=== PATIENT | male | born 1940 | race Caucasian/White ===

== ENCOUNTER → 2017-06-30 | Outpatient (CLI) | payer MEDICARE, BC ==
[~2017-06-30] MED LIST: ALLO300T2 PO; ATOR40TA16 PO; DONE5TAB7 PO; ESCI10TA PO; ESCI20TA PO; FOLI400T PO; FURO20TA PO; HYDR-3580 PO; ZIAC5TAB PO
[2017-06-30 09:15] LABS: AUTOMATED NEUTROPHIL # 5.3 TH/MM3 (1.8-7.7); BASOPHIL # 0.1 TH/MM3 (0-0.2); EOSINOPHIL # 0.1 TH/MM3 (0-0.4); EOSINOPHIL % 1.2 % (0.0-4.0); HEMATOCRIT 45.9 % (39.0-51.0); HEMOGLOBIN 15.7 GM/DL (13.0-17.0); LYMPH % 13.4 % (9.0-44.0); LYMPHOCYTE # 0.9 TH/MM3 (1.0-4.8); MEAN CELL VOLUME 87.7 FL (80.0-100.0); MEAN CORPUSCULAR HEMOGLOBIN 29.9 PG (27.0-34.0); MEAN CORPUSCULAR HGB CONC 34.1 % (32.0-36.0); MEAN PLATELET VOLUME 8.2 FL (7.0-11.0); MONO % 8.6 % (0.0-8.0); MONOCYTE # 0.6 TH/MM3 (0-0.9); NEUT % 75.8 % (16.0-70.0); PLATELET COUNT 154 TH/MM3 (150-450); RED BLOOD COUNT 5.24 MIL/MM3 (4.50-5.90)
[2017-06-30 09:22] LABS: PROTHROMBIN TIME - PATIENT 10.5 SEC (9.8-11.6)
[2017-06-30 09:41] LABS: AST (GOT) 28 U/L (15-37); BLOOD UREA NITROGEN 17 MG/DL (7-18); CALCIUM 8.9 MG/DL (8.5-10.1); CHLORIDE 104 MEQ/L (98-107); CREATININE 1.01 MG/DL (0.60-1.30); GLOMERULAR FILTRATION RATE 72 ML/MIN (>89); GLUCOSE,FASTING 92 MG/DL (74-99); SODIUM (NA) 141 MEQ/L (136-145)
[2017-06-30 09:42] LABS: ALT (GPT) 50 U/L (12-78)
[2017-06-30 09:44] LABS: ALKALINE PHOSPHATASE 94 U/L (45-117); TOTAL BILIRUBIN ADULT 0.7 MG/DL (0.2-1.0); TOTAL PROTEIN 7.6 GM/DL (6.4-8.2)
[2017-06-30 10:00] LABS: BILIRUBIN, URINE NEG (NEG); BLOOD, URINE NEG (NEG); GLUCOSE,URINE NEG (NEG); KETONE, URINE NEG (NEG); MUCUS URINE FEW /lpf (OCC); NITRITE,URINE NEG (NEG); SQUAMOUS EPITHELIAL CELL URINE 1 /hpf (0-5); URINE COLOR YELLOW (YELLW/STRAW); URINE LEUKOCYTE ESTERASE TRACE (NEG)
--- NOTE | 2017-06-30 10:21 | RADRPT ---
EXAM DATE/TIME: 06/30/2017 09:25 [facility] COMPARISON: CHEST PA & LAT, May 18, 2015, 9:45. INDICATIONS : Evaluate for pneumonia, pneumothorax, or communicable disease. Pre op for back surgery. MEDICAL HISTORY : Arthritis. Hypercholesterolemia. Hypertension. Hyperlipidemia. Chronic bronchitis. Osteoarthritis. SURGICAL HISTORY : Total knee replacement, left. Right shoulder surgery. Bilateral carpel tunnel release. ENCOUNTER: Initial ACUITY: 1 day PAIN SCORE: 0/10 LOCATION: Bilateral chest FINDINGS: PA and lateral views of the chest demonstrate the lungs to be symmetrically aerated without evidence of mass, infiltrate or effusion. The cardiomediastinal contours are unremarkable. Osseous structure s are intact. CONCLUSION: No acute disease. Nickolsa Rogers MD on June 30, 2017 at 10:18 Board Certified Radiologist. This report was verified electronically.
--- NOTE | 2017-07-01 23:11 | EKG ---
Date Performed: 06/30/2017 Time Performed: 08:23:12 PTAGE: 76 years EKG: SINUS BRADYCARDIA BORDERLINE ECG NO PREVIOUS TRACING DOCTOR: Madison Crawford Interpretating Date/Time 07/01/2017 23:09:21
== END ==
LOC: CPRE 07:55
PROVIDERS: ATTEND Neurological Surgery
DX: Z01.812 Encounter for preprocedural laboratory examination (principal); Z01.810 Encounter for preprocedural cardiovascular examination; Z01.811 Encounter for preprocedural respiratory examination; M48.062 Spinal stenosis, lumbar region with neurogenic claudication; Z01.818 Encounter for other preprocedural examination; R00.1 Bradycardia, unspecified
CPT/HCPCS: 36415; 71046; 80053; 81001; 85025; 85610; 85730; 87640; 87641; 93005

== ENCOUNTER 2017-07-15 06:37 | Observation (INO) | payer MEDICARE, BC ==
[~2017-07-15] VITALS: Ht 175.3 cm; Wt 96.4 kg
[~2017-07-15 06:37] MED LIST changes: -ESCI10TA PO
[2017-07-15] MEDS ORDERED: ceFAZolin INJ 1,000 MG VIAL ONE (06:51)
[2017-07-15] MEDS ORDERED: methylPREDNISolone ACETATE 40 MG/ML VIAL ONE (06:53)
[2017-07-15] MEDS ORDERED: THROMBIN (TOPICAL) 5,000 UNIT VIAL ONE (06:53)
[2017-07-15] MEDS ORDERED: GENTAMICIN SULFATE 80 MG/2 ML VIAL ONE (06:54)
[2017-07-15] MEDS ORDERED: GELFOAM SIZE 100 ONE (06:54)
[2017-07-15] MEDS ORDERED: ACETAMINOPHEN 1000 MG/100 ML 100 ML IV ONE (07:06)
[2017-07-15] MEDS ORDERED: ARTIFICIAL TEARS OPTH OINT 3.5 APPLIC/3.5 GM TUBO ONE (07:06)
[2017-07-15] MEDS ORDERED: CANNIBUS OIL SL (07:49)
[2017-07-15] MEDS ORDERED: CA (07:49)
[2017-07-15] MEDS ORDERED: CHLORHEXIDINE GLUCONATE 2 % 1 PACK (2 CLOTHS) TOPICAL PRN (08:00)
[2017-07-15] MEDS ORDERED: POVIDONE IODINE 5% (ANTISEPSIS KIT) 4 APPLICATIONS EACH NARE PRN (08:00)
[2017-07-15] MEDS ORDERED: METOPROLOL TARTRATE 25 MG TAB PO PRN (08:00)
[2017-07-15] MEDS ORDERED: SODIUM CHLORID 0.9% 500 ML IV PRN (08:00)
[2017-07-15] MEDS ORDERED: LACTATED RINGER'S 1000 ML IV PRN (08:00)
[2017-07-15] MEDS ORDERED: SUGAMMADEX SODIUM 200 MG/2 ML VIAL IV PUSH ONE (09:45)
[2017-07-15] MEDS ORDERED: BUPIVACAINE/EPINEPHRINE 0.5% 50 ML VIAL ONE (09:56)
[2017-07-15] MEDS ORDERED: VANCOMYCIN HCL 1000 MG VIAL ONE (10:04)
[2017-07-15] MEDS ORDERED: ROCURONIUM INJ 50 MG/5 ML SYRINGE IV PUSH ONE (12:00)
[2017-07-15] MEDS ORDERED: ONDANSETRON HCL 4 MG/2 ML VIAL IV ONE (12:00)
[2017-07-15] MEDS ORDERED: PHENYLEPH/NS 1000 MCG/10 ML SYR IV ONE (12:00)
[2017-07-15] MEDS ORDERED: PROPOFOL 200 MG/20 ML AMP IV ONE (12:00)
[2017-07-15] MEDS ORDERED: LIDOCAINE HCL 1% PF 5 ML SYRINGE OTHER ONE (12:00)
[2017-07-15] MEDS ORDERED: ePHEDrine/NS 25 MG/5 ML SYRINGE IV ONE (12:00)
[2017-07-15] MEDS ORDERED: GLYCOPYRROLATE 1 MG/5 ML SYRINGE IV PUSH ONE (12:00)
[2017-07-15] MEDS ORDERED: LABETALOL HCL 100 MG/20 ML VIAL IV ONE (12:00)
[2017-07-15] MEDS ORDERED: LACTATED RINGER'S 1000 ML INJ 1,000 ML IV ONE (12:00)
[2017-07-15] MEDS ORDERED: CYCLOBENZAPRINE HCL 10 MG TAB PO PRN (13:30)
[2017-07-15] MEDS ORDERED: ACETAMINOPHEN/HYDROcodone 325 MG/10 MG TAB PO PRN (13:30)
[2017-07-15] MEDS ORDERED: MAGNESIUM HYDROXIDE SUSP 30 ML CUP PO PRN (13:30)
[2017-07-15] MEDS ORDERED: ONDANSETRON HCL 4 MG/2 ML VIAL IV PUSH PRN (13:30)
[2017-07-15] MEDS ORDERED: cloNIDine HCL 0.1 MG TAB PO/NG PRN (13:30)
[2017-07-15] MEDS ORDERED: MORPHINE SULFATE 4 MG/ML INJ IV PUSH PRN (13:30)
[2017-07-15] MEDS ORDERED: MORPHINE SULFATE 2 MG/ML SYRINGE IV PUSH PRN (13:30)
[2017-07-15] MEDS ORDERED: RESP: ALBUTEROL 2.5 MG/3 ML NEB (PRN) INH (13:30)
[2017-07-15] MEDS ORDERED: MENTHOL LOZENGE BUCCAL PRN (13:30)
[2017-07-15] MEDS ORDERED: ACETAMINOPHEN 325 MG TAB PO PRN (13:30)
[2017-07-15] MEDS ORDERED: DO NOT ADM ANY ANTICOAGULANT DRUGS PRN (13:31)
[2017-07-15] MEDS ORDERED: MIDAZOLAM HCL 2 MG/2 ML VIAL ONE (13:41)
[2017-07-15] MEDS ORDERED: *morphine SULFATE 4 MG/ML PERIprocedure ONLY ONE (13:57)
[2017-07-15] MEDS ORDERED: *morphine SULFATE 8 MG/ML PERIprocedure ONLY ONE ×2 (14:11→15:09)
[2017-07-15] MEDS: SODIUM CHLOR 0.9% 1000 ML INJ 1,000 ML IV SCH (14:51)
--- NOTE | 2017-07-15 14:55 | PD.OP ---
Operative Report Date of Surgery: Jul 15, 2017 Preoperative Diagnosis: Lumbar spinal stenosis Postoperative Diagnosis: Lumbar spinal stenosis Procedure: Right L3-4 L4-L5 decompressive laminectomy, mesial facetectomy, foraminotomy with microsurgical resection of the disc Anesthesia: general endotracheal Surgeon: Etienne Jones Acetylene Cutter(s): Opal Cabral Operation and Findings: INDICATIONS FOR THE SURGICAL PROCEDURE Mr Patterson is a 76 year-old male who presented with intractable mechanical back pain and clinical evidence of right L4 and L5 lower extremity radiculopathy. He was found to have significant lumbar spinal stenosis with significant mass effect on the neural structures which correlated with the clinical symptoms. The patient has failed maximum nonsurgical management including multiple modalities of conservative treatment as well as pain management interventions by an interventional pain specialist. A surgical decompression was indicated as a last resort. The [id number] details of the procedure, indications, alternatives, risks and potential complications were fully discussed with the patient. The patient fully understood. All the questions were answered. No guarantees were given. The patient voiced requesting the procedure and provided informed consents. The patient was offered the alternative of delaying the procedure and continuing with nonsurgical management. DETAILS OF THE SURGICAL PROCEDURE After the induction of general anesthesia, endotracheal intubation was performed. A Kay catheter, bilateral KENNETH hose and sequential compression devices were placed and kept throughout the procedure. The patient was positioned prone on a Vadim table over a Jason frame. All pressure points were carefully padded with eggcrate mattress. The eyes were tapped shut after ointment was applied by the anesthesiologist to prevent corneal abrasion. A Marisela hugger was placed over the exposed lower body to maintain control of the core body temperature. The lower lumbar region was prepped and draped in the usual sterile fashion. A spinal needle was placed for localization and an x- ray performed with a C-arm. A skin incision was made in the midline over the spinous processes L3, L4, and L5 with a #10 blade. Small subcutaneous bleeders were controlled with a bipolar and the dissection was carried out through the lumbar fascia exposing the spinous processes. A subperiostial dissection was performed with a Robison elevator and a Bovie over the L3-4, L4-5 spinous process lamina and facets. A microdiscectomy self-retaining retractor was placed on the incision and an x- ray was obtained with an instrument placed underneath the lamina of L5. At this point in the procedure the operating microscope was draped in the usual sterile fashion and brought to the field. The rest of the surgical procedure was performed using microsurgical dissection technique with exception of the closure. Once the level was confirmed, a decompressive laminectomy was performed at L3-4 , L4-5 using the TPS drill with an 4mm drill bit. A medial facetectomy was performed and the superior free border of the ligamentum flavum was dissected with a ligament dissector and removed with a thin footplate 2 mm Kerrison. The medial facetectomy was done and the L5 nerve root was identified and followed towards its exit in the foramen. Epidural veins located laterally to the dural sac were coagulated with a bipolar and incised with microscissors. Gentle medial retraction of the dural sac allowed inspection of the disc space. The patient had severe facet arthropathy with hypertrhopy of the joint facets and ligamentum flavum resulting in mass effect over the dural sac and nerve roots. In addition, there was a broad-based disc protusion, contributing to the stenosis. The annulus fibrosus of the disc was coagulated with the bipolar and incised with an 11 blade. The extruded disc was carefully dissected from the surrounding tissue and removed with pituitary forceps. Then, a microdiscectomy was carried out in the standard fashion using straight and up-biting pituitary forceps. A good decompression of the dural sac and nerve root was achieved. The exit of the nerve root was inspected for residual disc fragments and hemostasis was secured with the bipolar. The incision was irrigated with a large amount of saline solution. A Valsalva maneuver failed to show any cerebrospinal fluid leak or bleeding. The decompression was assessed again and found to be satisfactory. The incision was then closed in layers. The fascia was closed with 0 Vicryl sutures in an interrupted fashion. The superficial fascia was closed with 0 Vicryl sutures. The fascia was infiltrated with 0.5% Marcaine with epinephrine 1:100,000 dilution. The subcutaneous tissue was irrigated then closed with 0 Vicryl and 3 -0 Vicryl. The skin was closed with 4-0 running subcuticular Vicryl. A sterile dressing was applied. At the end of the procedure, the sponge, needle and instrument counts were all correct. Estimated blood loss was less than 80 cc. No blood transfusion was given. No intraoperative complications occurred. The patient received prophylactic antibiotics. The patient was then extubated and transferred to the recovery room in stable condition. Etienne Jones MD Jul 15, 2017 14:55
[2017-07-15] MEDS ORDERED: HYDR-3583 PO (15:09)
--- NOTE | 2017-07-15 15:11 | RADRPT ---
EXAM DATE/TIME: 07/15/2017 11:23 [facility] COMPARISON: No previous studies available for comparison. INDICATIONS : Level Localization L3,L4 and L4,L5 for laminectomy MEDICAL HISTORY : Arthritis. Hypercholesterolemia. Hypertension. Hyperlipidemia. Chronic bronchitis. Osteoarthritis. SURGICAL HISTORY : Total knee replacement, left. Right shoulder surgery. Bilateral carpel tunnel release. ENCOUNTER: Initial ACUITY: 1 day PAIN SCORE: Non-responsive. LOCATION: Lumbar spine. FINDINGS: Several intraoperative films are submitted for review. Surgical hardware is noted posterior to the L4 vertebral body and marker instrument is noted at the L3-4 and L4-5 levels. CONCLUSION: Surgical hardware is noted posterior to the L4 vertebral body and marker instrument is noted at the L 3-4 and L4-5 levels. Stephen Ruiz MD on July 15, 2017 at 15:07 Board Certified Radiologist. This report was verified electronically.
[2017-07-15 16:58] VITALS: BP 150/64; PULSE 81; RESP 20; TEMP 98.4; O2SAT 92
[2017-07-15] MEDS: ACETAMINOPHEN/HYDROcodone 325 MG/10 MG TAB PO PRN ×2 (18:07→22:42)
[2017-07-15 19:46] VITALS: O2SAT 96
[2017-07-15 20:00] VITALS: BP 127/71; PULSE 91; RESP 20; TEMP 97.7; O2SAT 94
[2017-07-15] MEDS ORDERED: ATORVASTATIN 40 MG TAB PO SCH (21:00)
[2017-07-15] MEDS ORDERED: DONEPEZIL HCL 5 MG TAB PO SCH (21:00)
[2017-07-15 21:09] VITALS: BP 127/71; PULSE 91; RESP 20; TEMP 97.9; O2SAT 93
[2017-07-15] MEDS: DOCUSATE SODIUM 100 MG CAP PO SCH (22:42)
[2017-07-15] MEDS: VANCOMYCIN INJ 1,000 MG in SODIUM CHLOR 0.9% 250 ML INJ 250 ML IV SCH (22:43)
[2017-07-16] VITALS: BP 109/59; PULSE 82; RESP 18; TEMP 97.8; O2SAT 95
[2017-07-16 00:09] VITALS: BP 109/56; PULSE 82; RESP 18; TEMP 97.8; O2SAT 95
[2017-07-16] MEDS: SODIUM CHLOR 0.9% 1000 ML INJ 1,000 ML IV SCH ×2 (04:10)
[2017-07-16 04:47] VITALS: BP 107/59; PULSE 81; RESP 18; TEMP 98; O2SAT 94
[2017-07-16 08:00] VITALS: BP 122/55; PULSE 78; RESP 16; TEMP 98.1; O2SAT 94
[2017-07-16] MEDS: DOCUSATE SODIUM 100 MG CAP PO SCH (08:57)
[2017-07-16] MEDS ORDERED: FUROSEMIDE 20 MG TAB PO SCH (09:00)
[2017-07-16] MEDS ORDERED: BISOPROLOL HYDROCHLOROTHIAZIDE PO SCH (09:00)
[2017-07-16] MEDS ORDERED: ALLOPURINOL 300 MG TAB PO SCH (09:00)
[2017-07-16] MEDS ORDERED: FOLIC ACID 1 MG TAB PO SCH (09:00)
[2017-07-16] MEDS ORDERED: ESCITALOPRAM OXALATE 20 MG TAB PO SCH (09:00)
[2017-07-16] MEDS ORDERED: PANTOPRAZOLE SOD 40 MG DELAYED RELEASE TAB PO SCH (09:00)
[2017-07-16 10:05] VITALS: O2SAT 97
--- NOTE | 2017-07-16 10:53 | HHI.DCPOC ---
Discharge Care Plan Diagnosis: (1) S/P lumbar laminectomy Goals to Promote Your Health * To prevent worsening of your condition and complications * To maintain your health at the optimal level Directions to Meet Your Goals Take your medications as prescribed Follow your dietary instruction Follow activity as directed Keep your appointments as scheduled Take your immunizations and boosters as scheduled If your symptoms worsen call your PCP, if no PCP go to Urgent Care Center or Emergency Room Smoking is Dangerous to Your Health. Avoid second hand smoke Call the 24-hour hour crisis hotline for domestic abuse at Mayra Elizondo Jul 16, 2017 10:53
--- NOTE | 2017-07-16 10:54 | HHI.DS ---
Discharge Summary Admission Date Jul 15, 2017 at 13:19 Discharge Date: Jul 16, 2017 Admitting Diagnosis s/p lumbar laminectomy (1) S/P lumbar laminectomy ICD Code: Z98.890 - Other specified postprocedural states Brief History Mr Patterson is a 76 year-old male who presented with intractable mechanical back pain and clinical evidence of right L4 and L5 lower extremity radiculopathy. He was found to have significant lumbar spinal stenosis with significant mass effect on the neural structures which correlated with the clinical symptoms. The patient has failed maximum nonsurgical management including multiple modalities of conservative treatment as well as pain management interventions by an interventional pain specialist. A surgical decompression was indicated as a last resort. Imaging Last Impressions Lumbar Spine X-Ray 07/15/17 0000 Signed Impressions: Service Date/Time: Thursday, July 15, 2017 11:23 - CONCLUSION: Surgical hardware is noted posterior to the L4 vertebral body and marker instrument is noted at the L3-4 and L4-5 levels. Stephen Ruiz MD Hospital Course Mr. Patterson underwent a right L3-4 L4-L5 decompressive laminectomy, mesial facetectomy, foraminotomy with microsurgical resection of the disc on Jul 15, 2017 for lumbar spinal stenosis. He was discharged home in stable conditions. Pt Condition on Discharge: Stable Discharge Disposition: Disch w/ Home Health Serv Discharge Instructions DIET: Follow Instructions for: Heart Healthy Diet ACTIVITIES You can perform: Weight Bearing As Leroy ADDITIONAL Activity Instructio: Avoid strenuous activities, heavy lifting over 5 lbs, overhead activities, repetitive bending, twisting, pushing, pulling or any activities which might result in stress over the spine. Avoid situation that will put at risk for falls. Use assistive device as needed for walking. Wear provided back brace when out of bed. New Medications: Hydrocodone/Acetaminophen (Hydrocodone-Acetamin 10-325 mg) 10 Mg-325 Mg Tablet 1 TAB PO Q8HR PRN for PAIN SCALE 1 TO 10, #62 TAB 0 Refills Continued Medications: Allopurinol (Allopurinol) 300 Mg Tab 300 MG PO DAILY for Gout, #30 TAB 0 Refills Atorvastatin (Atorvastatin) 40 Mg Tab 40 MG PO HS for Cholesterol Management, #30 TAB 0 Refills Bisoprolol-Hydrochlorothiazide (Ziac) 5-6.25 Mg Tab 1 TAB PO DAILY for Blood Pressure Management, #30 TAB 0 Refills Donepezil (Donepezil) 5 Mg Tab 5 MG PO HS for Dementia, #30 TAB 0 Refills Folic Acid (Folic Acid) 0.4 Mg Tab 1 MG PO DAILY for Nutritional Supplement, TAB 0 Refills Furosemide (Furosemide) 20 Mg Tab 20 MG PO DAILY, #30 TAB 0 Refills [Cannibus Oil] () 10 DROP SL DIRECTED for Pain Discontinued Medications: Escitalopram (Escitalopram) 20 Mg Tab 20 MG PO DAILY, #30 TAB 0 Refills Hydrocodone-Acetaminophen (Hydrocodone-Acetaminophen) 7.5 Mg-325 Mg Tab 1-2 TAB PO Q6H PRN for PAIN, TAB 0 Refills Mayra Elizondo Jul 16, 2017 10:54
--- NOTE | 2017-07-16 10:55 | HHI.FF ---
Face to Face Verification Diagnosis: (1) S/P lumbar laminectomy Physical Therapy Order: Improve ambulation, Strength and gait training (lower extremity as tolerated, no lumbar exercises) Home Health Nursing Order: Medical education Signs/symptoms of disease process Medication education-adverse effect Wound care and dressing changes (see dc wound care order) Nursing assessment with vital signs I have seen patient Hollis PattersonJr on 07/16/17. My clinical findings support the need for the requested home health care services because: Ltd mobility - disease progression Deconditioned w/ increased weakness High risk of falls I certify that my clinical findings support that this patient is homebound because: Post-op weakness Unsteady gait/balance Mayra Elizondo Jul 16, 2017 10:55
[2017-07-16] MEDS: VANCOMYCIN INJ 1,000 MG in SODIUM CHLOR 0.9% 250 ML INJ 250 ML IV SCH (11:00)
== END 2017-07-16 11:59 | disposition home health service (06) ==
LOC: HSDC 06:37 → HSDI 13:19 → N05B 16:00
PROVIDERS: ADMIT Neurological Surgery; ATTEND Neurological Surgery
DX: M48.061 Spinal stenosis, lumbar region without neurogenic claudication (principal); M54.16 Radiculopathy, lumbar region; I10 Essential (primary) hypertension; E78.00 Pure hypercholesterolemia, unspecified; M19.90 Unspecified osteoarthritis, unspecified site
CPT/HCPCS: 00630; 63047; 63048; 72020; 76000; 94150; 96360; 96361; 97163; G0378; G8987; G8988; J0131; J1030; J1580; J2250; J2270; J2370; J2405; J3010; J3370; J7030; J7050; J7120; L0627; J0690

== ENCOUNTER 2017-08-05 10:13 | Inpatient (IN) | payer MEDICARE, BC ==
[~2017-08-05] VITALS: Ht 175.3 cm; Wt 90.0 kg
[2017-08-05] VITALS (8 sets, daily range): BP systolic 130–180; BP diastolic 67–92; PULSE 57–69; RESP 16–20; TEMP 97.6–97.9; O2SAT 94–98
[~2017-08-05 10:13] MED LIST changes: +CANNIBUS OIL SL; -ESCI20TA PO; -HYDR-3580 PO; +HYDR-3583 PO
--- NOTE | 2017-08-05 10:26 | PD ---
HPI Chief Complaint: Back/ Neck Pain or Injury Time Seen by Provider: 10:24 Travel History International Travel<30 days: No Contact w/Intl Traveler<30days: No Traveled to known affect area: No History of Present Illness HPI 76 y/o male presents with sharp low back pain and weakness and numbness to his right leg. He states that he was doing okay after his surgery but yesterday after he sneezed and had a fall the weakness and numbness got worse in his leg and now he cannot feel his leg at all. He states the hydrocodone helps with the pain some. He states his surgeon Dr. Jones advised him to come here. He states he had surgery with him on July 15 on his back. He denies any other concurrent complaints. His states he has had multiple falls at home. She helps supplement history as patient does not have his hearing aid in [facility] Past Medical History Arthritis: Yes Asthma: No Autoimmune Disease: Yes (MS) Anxiety: Yes (does not take any medications for his anxiety) Depression: No Heart Rhythm Problems: No Cancer: No Cardiovascular Problems: No High Cholesterol: Yes Chemotherapy: No Chest Pain: No Congestive Heart Failure: No COPD: No Cerebrovascular Accident: No Diabetes: No Endocrine: Yes (benign pituitary adenoma) GERD: No Genitourinary: No Hepatitis: No Hiatal Hernia: No Immune Disorder: Yes (MS) Kidney Stones: Yes (kidney stones removed ) Musculoskeletal: Yes (osteoarthritis) Neurologic: Yes (MS) Psychiatric: Yes (DEMENTIA) Reproductive: No Respiratory: Yes Migraines: No Radiation Therapy: No Renal Failure: No Seizures: No Sickle Cell Disease: No Sleep Apnea: No Thyroid Disease: No Ulcer: No Past Surgical History Abdominal Surgery: No AICD: No Arteriovenous Shunt: No Cardiac Surgery: No Ear Surgery: No Endocrine Surgery: No Eye Surgery: No Genitourinary Surgery: Yes (kidney stones removed) Gynecologic Surgery: No Insulin Pump: No Joint Replacement: Yes (LEFT KNEE) Oral Surgery: No Pacemaker: No Thoracic Surgery: No Social History Tobacco Use: No Substance Use: Yes ([facility]) Allergies-Medications (Allergen,Severity, Reaction): Coded Allergies: diphenhydramine (Unverified Allergy, Severe, anaphylaxis, 08/05/17) penicillin G (Unverified Allergy, Severe, anaphylaxis, 08/05/17) moxifloxacin (Unverified Allergy, Mild, unknown, 08/05/17) Uncoded Allergies: All Cillins (Allergy, Severe, Anaphylaxis, 05/18/15) pt states he is allergic to "all cillins" Reported Meds & Prescriptions Reported Meds & Active Scripts Active Hydrocodone-Acetamin 10-325 mg (Hydrocodone/Acetaminophen) 10 Mg-325 Mg Tablet 1 Tab PO Q8HR PRN Reported Escitalopram (Escitalopram Oxalate) 10 Mg Tab 10 Mg PO DAILY [Cannibus Oil] 10 Drop SL DIRECTED Furosemide 20 Mg Tab 20 Mg PO DAILY Donepezil 5 Mg Tab 5 Mg PO HS Folic Acid 0.4 Mg Tab 1 Mg PO DAILY Ziac (Bisoprolol-Hydrochlorothiazide) 5-6.25 Mg Tab 1 Tab PO DAILY Atorvastatin (Atorvastatin Calcium) 40 Mg Tab 40 Mg PO HS Allopurinol 300 Mg Tab 300 Mg PO DAILY Review of Systems Except as stated in HPI: all other systems reviewed are Neg Physical Exam Narrative GENERAL: 76-year-old male who appears uncomfortable SKIN: Focused skin assessment warm/dry. HEAD: Atraumatic. Normocephalic. EYES: Pupils equal and round. No scleral icterus. No injection or drainage. ENT: No nasal bleeding or discharge. Mucous membranes pink and moist. NECK: Trachea midline. CARDIOVASCULAR: Regular rate and rhythm. No murmur appreciated. RESPIRATORY: No accessory muscle use. No increased effort GASTROINTESTINAL: Abdomen soft, non-tender, nondistended. MUSCULOSKELETAL: No obvious deformities. No clubbing. No cyanosis. No edema. NEUROLOGICAL: Awake and alert. Patient can only lift right leg off the bed if he uses his left leg to assist. He can bend his leg at the knee but he cannot get it off the bed on his own without significant pain and he states weakness. He also notes numbness to his entire right leg but can feel me touch. Normal speech. PSYCHIATRIC: Appropriate mood and affect; insight and judgment normal. Data Data Last Documented VS Vital Signs Date Time Temp Pulse Resp B/P (MAP) Pulse Ox O2 Delivery O2 Flow Rate FiO2 08/05/17 11:00 57 19 166/77 (106) 97 Room Air 08/05/17 10:19 97.9 Orders Orders Magnesium (Mg) (08/05/17 10:33) Complete Blood Count With Diff (08/05/17 10:33) Basic Metabolic Panel (Bmp) (08/05/17 10:33) Iv Access Insert/Monitor (08/05/17 10:33) Ecg Monitoring (08/05/17 10:33) Oximetry (08/05/17 10:33) Morphine Inj (Morphine Inj) (08/05/17 10:45) Mri L Spine W&W/O Contrast (08/05/17 ) Gadodiamide Pf Inj (Omniscan Pf Inj) (08/05/17 13:12) Admit Order (Ed Use Only) (08/05/17 14:23) Labs Laboratory Tests Test 08/05/17 10:40 White Blood Count 6.6 TH/MM3 Red Blood Count 5.19 MIL/MM3 Hemoglobin 15.8 GM/DL Hematocrit 45.8 % Mean Corpuscular Volume 88.1 FL Mean Corpuscular Hemoglobin 30.4 PG Mean Corpuscular Hemoglobin Concent 34.4 % Red Cell Distribution Width 14.4 % Platelet Count 143 TH/MM3 Mean Platelet Volume 8.3 FL Neutrophils (%) (Auto) 78.9 % Lymphocytes (%) (Auto) 9.4 % Monocytes (%) (Auto) 10.9 % Eosinophils (%) (Auto) 0.1 % Basophils (%) (Auto) 0.7 % Neutrophils # (Auto) 5.2 TH/MM3 Lymphocytes # (Auto) 0.6 TH/MM3 Monocytes # (Auto) 0.7 TH/MM3 Eosinophils # (Auto) 0.0 TH/MM3 Basophils # (Auto) 0.0 TH/MM3 CBC Comment DIFF FINAL Differential Comment Blood Urea Nitrogen 15 MG/DL Creatinine 1.17 MG/DL Random Glucose 106 MG/DL Calcium Level 9.6 MG/DL Magnesium Level 2.1 MG/DL Sodium Level 136 MEQ/L Potassium Level 3.3 MEQ/L Chloride Level 98 MEQ/L Carbon Dioxide Level 25.2 MEQ/L Anion Gap 13 MEQ/L Estimat Glomerular Filtration Rate 61 ML/MIN MDM Medical Decision Making Medical Screen Exam Complete: Yes Emergency Medical Condition: Yes Medical Record Reviewed: Yes (Right L3-4 L4-L5 decompressive laminectomy, mesial facetectomy, foraminotomy with microsurgical resection of the disc on july [address] daniel) Interpretation(s) CBC & BMP Diagram 08/05/17 10:40 Calcium Level 9.6, Magnesium Level 2.1 Last 24 hours Impressions Lumbar Spine MRI 08/05/17 0000 Signed Impressions: Service Date/Time: Saturday, August 05, 2017 12:48 - CONCLUSION: 1. There has been prior right laminectomy at L3-L4 and L4-L5. At L3-L4, there is very mild canal narrowing secondary to material in the posterior lateral to lateral epidural space, likely representing scar tissue given the appearance and enhancement pattern. 2. At L4-L5 there is no canal stenosis but there is mild to moderate narrowing of the neural foramina bilaterally. Bhupinder Murdock MD Differential Diagnosis Fracture, disc injury, stenosis Narrative Course Will check blood work, mri spine and discuss with his surgeon Surgeon updated about CT and without surgical findings on MRI. Will admit to the hospital for further care given significant increase in weakness and numbness to right leg leading to multiple falls. patient updated Physician Communication Physician Communication [facility] states to proceed with mri spine and call back [facility] states to admit to medicine and may need neurology consult dr clements agrees to admit Diagnosis Primary Impression: Right leg weakness Additional Impressions: Right leg numbness Back pain Qualified Codes: M54.9 - Dorsalgia, unspecified Fall Qualified Codes: W19.XXXA - Unspecified fall, initial encounter Admitting Information Admitting Physician Requests: Wilma Titus MD August 05, 2017 10:26
[2017-08-05] MEDS ORDERED: ESCI10TA PO (10:37)
[2017-08-05] MEDS ORDERED: MORPHINE SULFATE 4 MG/ML INJ IV PUSH ONE (10:45)
[2017-08-05 11:24] LABS: AUTOMATED NEUTROPHIL # 5.2 TH/MM3 (1.8-7.7); BASOPHIL % 0.7 % (0.0-2.0); EOSINOPHIL % 0.1 % (0.0-4.0); HEMATOCRIT 45.8 % (39.0-51.0); HEMOGLOBIN 15.8 GM/DL (13.0-17.0); LYMPH % 9.4 % (9.0-44.0); LYMPHOCYTE # 0.6 TH/MM3 (1.0-4.8); MEAN CELL VOLUME 88.1 FL (80.0-100.0); MEAN CORPUSCULAR HEMOGLOBIN 30.4 PG (27.0-34.0); MEAN CORPUSCULAR HGB CONC 34.4 % (32.0-36.0); MEAN PLATELET VOLUME 8.3 FL (7.0-11.0); MONO % 10.9 % (0.0-8.0); MONOCYTE # 0.7 TH/MM3 (0-0.9); NEUT % 78.9 % (16.0-70.0); PLATELET COUNT 143 TH/MM3 (150-450); RED BLOOD COUNT 5.19 MIL/MM3 (4.50-5.90); RED CELL DISTRIBUTION WIDTH 14.4 % (11.6-17.2); WHITE BLOOD COUNT 6.6 TH/MM3 (4.0-11.0)
[2017-08-05 11:41] LABS: BICARBONATE 25.2 MEQ/L (21.0-32.0); CALCIUM 9.6 MG/DL (8.5-10.1); CREATININE 1.17 MG/DL (0.60-1.30); MAGNESIUM 2.1 MG/DL (1.5-2.5)
[2017-08-05] MEDS ORDERED: GADODIAMIDE PF 287 MG/ML 20 ML VIAL (for RAD MRI) IVCONTRAST ONE ×2 (13:12→14:25)
--- NOTE | 2017-08-05 13:55 | RADRPT ---
EXAM DATE/TIME: 08/05/2017 12:48 [facility] COMPARISON: No previous studies available for comparison. INDICATIONS : Right leg weakness post fall. Lumbar laminectomy 3 weeks ago. CONTRAST: 18 cc Omniscan (gadodiamide) IV MEDICAL HISTORY : Hypertension. SURGICAL HISTORY : Shoulder, Lt knee, lumbar laminectomy ENCOUNTER: Subsequent ACUITY: 2 day PAIN SCORE: 3/10 LOCATION: lower back TECHNIQUE: Multiplanar multisequence MRI of the lumbar spine was performed with and without contrast. FINDINGS: The most caudal appearing lumbar vertebra is numbered as L5. VERTEBRAE: Bone marrow signal is within normal limits. There has been prior laminectomy on the right at L3-L4 an d L4-L5. Vertebral body height is maintained. A hemangioma is present within the L3 vertebral body po steriorly. CONUS: Normal level and configuration. POST CONTRAST: There is a mild degree of enhancement of scar tissue in the right posterior epidural space at L3-L4. T12-L1: No significant disc herniation, canal stenosis, or neural foraminal stenosis is present. L1-L2: No significant disc herniation, canal stenosis, or neural foraminal stenosis. There is mild facet hyp ertrophy. L2-L3: There is a mild diffuse disc bulge with mild facet hypertrophy. No spinal canal stenosis or neural fo raminal stenosis is present. Endplate osteophytes are present anteriorly. L3-L4: Endplate osteophytes are present anteriorly. There has been a right laminectomy. Heterogeneous T2 sig nal is present in the right posterior lateral epidural space in this tissue demonstrates a mild degre e of enhancement. This mildly narrows the canal. There is mild right neural foraminal stenosis. Facet hypertrophy is present. L4-L5: There has been prior laminectomy on the right. Endplate osteophytes are present anteriorly. There is moderate facet hypertrophy with fluid in the right facet joint. There is a mild diffuse disc bulge. N o spinal canal stenosis is present. There is mild to moderate narrowing of the neural foramina bilate rally. L5-S1: There is a mild diffuse disc bulge with a possible annular tear centrally. Moderate facet hypertrophy is present bilaterally with fluid in the right facet joint. No spinal canal stenosis or neural sadi inal narrowing is present. There is edema within the right posterior paraspinal musculature at the level of prior surgery. CONCLUSION: 1. There has been prior right laminectomy at L3-L4 and L4-L5. At L3-L4, there is very mild canal narr owing secondary to material in the posterior lateral to lateral epidural space, likely representing s car tissue given the appearance and enhancement pattern. 2. At L4-L5 there is no canal stenosis but there is mild to moderate narrowing of the neural foramina bilaterally. Bhupinder Murdock MD on August 05, 2017 at 13:46 Board Certified Radiologist. This report was verified electronically.
[2017-08-05] MEDS ORDERED: ONDANSETRON HCL 4 MG/2 ML VIAL IVP PRN (16:30)
[2017-08-05] MEDS ORDERED: MAGNESIUM HYDROXIDE SUSP 30 ML CUP PO PRN (16:30)
[2017-08-05] MEDS ORDERED: ACETAMINOPHEN/HYDROcodone 325 MG/5 MG TAB PO PRN (16:30)
[2017-08-05] MEDS ORDERED: NALOXONE HCL 0.4 MG/ML AMP IV PUSH PRN (16:30)
[2017-08-05] MEDS ORDERED: MORPHINE SULFATE 2 MG/ML SYRINGE IV PUSH PRN (16:30)
--- NOTE | 2017-08-05 17:04 | HHI.HP ---
[facility] Service [facility] Primary Care Physician Jalen Betancourt M.D. Admission Diagnosis Right leg numbness and weakness, low back pain, fall Diagnoses: Chief Complaint: right leg weakness and right groin pain Travel History International Travel<30 Days: No Contact w/Intl Traveler <30 Da: No Traveled to Known Affected Are: No History of Present Illness Written by ELPIDIO Ellison acting as scribe for [Mychal] on 08/05/17 at 16: 53. 76 y/o with a history of MS (not on medication in 3 years), HLD, dementia, HTN, depression and gout complaints of weakness of right leg and right groin pain. Patient states he had L4-L5 surgery 3 weeks ago and things were getting better and his right leg weakness was improving and he was able to move his leg. He states he fell on and the weakness returned. He noticed on Thursday when he sneezed he lost control of his bladder and had extreme pain in his lower spine. He complains of right upper quadrant sore pain, 6/10, worse with palpation and right inguinal area pain worse with cough. He is awaiting pain medications. He states he uses CBD oil at home for pain. He use to follow with Dr. Posadas for his MS but has not seen him in 3 years. Denies any chest pain or sob. Review of Systems Except as stated in HPI: all other systems reviewed are Neg Past Family Social History Past Medical History MS HTN HLD Dementia Depression Gout Past Surgical History L4-L5 Left knee Right shoulder surgery Carpal tunnel Reported Medications Reported Meds & Active Scripts Active Hydrocodone-Acetamin 10-325 mg (Hydrocodone/Acetaminophen) 10 Mg-325 Mg Tablet 1 Tab PO Q8HR PRN Reported Escitalopram (Escitalopram Oxalate) 10 Mg Tab 10 Mg PO DAILY [Cannibus Oil] 10 Drop SL DIRECTED Furosemide 20 Mg Tab 20 Mg PO DAILY Donepezil 5 Mg Tab 5 Mg PO HS Folic Acid 0.4 Mg Tab 1 Mg PO DAILY Ziac (Bisoprolol-Hydrochlorothiazide) 5-6.25 Mg Tab 1 Tab PO DAILY Atorvastatin (Atorvastatin Calcium) 40 Mg Tab 40 Mg PO HS Allopurinol 300 Mg Tab 300 Mg PO DAILY Allergies: Coded Allergies: diphenhydramine (Unverified Allergy, Severe, anaphylaxis, 08/05/17) penicillin G (Unverified Allergy, Severe, anaphylaxis, 08/05/17) moxifloxacin (Unverified Allergy, Mild, unknown, 08/05/17) Uncoded Allergies: All Cillins (Allergy, Severe, Anaphylaxis, 05/18/15) pt states he is allergic to "all cillins" Active Ordered Medications Current Medications Medications (Trade) Dose Ordered Sig/Sanam Route Start Time Stop Time Status Last Admin (Zyloprim) 300 mg DAILY PO 08/06/17 09:00 UNV (Lipitor) 40 mg HS PO 08/05/17 21:00 UNV (Aricept) 5 mg HS PO 08/05/17 21:00 UNV (Lexapro) 10 mg DAILY PO 08/06/17 09:00 UNV (Folate) 1 mg DAILY PO 08/06/17 09:00 UNV (Lasix) 20 mg DAILY PO 08/06/17 09:00 UNV Non-Formulary Medication 1 tab DAILY PO 08/06/17 09:00 UNV (KCl) 40 meq ONCE ONCE PO 08/05/17 16:30 08/05/17 16:31 UNV (Zofran Inj) 4 mg Q6H PRN IVP 08/05/17 16:30 UNV (Lovenox Inj) 40 mg Q24H SQ 08/05/17 16:30 UNV (Irving 5-325 Mg) 1 tab Q4H PRN PO 08/05/17 16:30 UNV (Irving 7.5-325 Mg) 1 tab Q4H PRN PO 08/05/17 16:30 UNV (Morphine Inj) 4 mg Q3H PRN IV PUSH 08/05/17 16:30 UNV (Narcan Inj) 0.4 mg UNSCH PRN IV PUSH 08/05/17 16:30 UNV (Maria Eugenia-Colace) 1 tab BID PO 08/05/17 21:00 UNV (Milk Of Magnesia Liq) 30 ml Q12H PRN PO 08/05/17 16:30 UNV Family History Mom and Dad: Heart disease Social History Patient denies any tobacco, alcohol or illicit drug use. Patient lives at home with Physical Exam Vital Signs Vital Signs Date Time Temp Pulse Resp B/P (MAP) Pulse Ox O2 Delivery O2 Flow Rate FiO2 08/05/17 16:28 97 21 08/05/17 14:30 57 19 180/80 (113) 97 Room Air 08/05/17 11:00 57 19 166/77 (106) 97 Room Air 08/05/17 10:38 97 Room Air 08/05/17 10:38 75 18 08/05/17 10:19 97.9 64 20 164/67 (99) 98 Physical Exam GENERAL: This is a well-nourished, well-developed patient, in no apparent distress. SKIN: No rashes, ecchymoses or lesions. Cool and dry. EYES: Pupils equal round and reactive. Extraocular motions intact. No scleral icterus. No injection or drainage. NECK: Trachea midline. No JVD or lymphadenopathy. CARDIOVASCULAR: Regular rate and rhythm without murmurs, gallops, or rubs. RESPIRATORY: Clear to auscultation. Breath sounds equal bilaterally. No wheezes , rales, or rhonchi. GASTROINTESTINAL: Abdomen soft, RUQ tenderness, nondistended. Right inguinal pain. MUSCULOSKELETAL: Right flaccid lower extremity. No joint tenderness, effusion, or edema noted. No calf tenderness. NEUROLOGICAL: Awake and alert. Cranial nerves II through XII intact. Motor and sensory grossly within normal limits. Normal speech. Laboratory Laboratory Tests Test 08/05/17 10:40 White Blood Count 6.6 Red Blood Count 5.19 Hemoglobin 15.8 Hematocrit 45.8 Mean Corpuscular Volume 88.1 Mean Corpuscular Hemoglobin 30.4 Mean Corpuscular Hemoglobin Concent 34.4 Red Cell Distribution Width 14.4 Platelet Count 143 Mean Platelet Volume 8.3 Neutrophils (%) (Auto) 78.9 Lymphocytes (%) (Auto) 9.4 Monocytes (%) (Auto) 10.9 Eosinophils (%) (Auto) 0.1 Basophils (%) (Auto) 0.7 Neutrophils # (Auto) 5.2 Lymphocytes # (Auto) 0.6 Monocytes # (Auto) 0.7 Eosinophils # (Auto) 0.0 Basophils # (Auto) 0.0 CBC Comment DIFF FINAL Differential Comment Blood Urea Nitrogen 15 Creatinine 1.17 Random Glucose 106 Calcium Level 9.6 Magnesium Level 2.1 Sodium Level 136 Potassium Level 3.3 Chloride Level 98 Carbon Dioxide Level 25.2 Anion Gap 13 Estimat Glomerular Filtration Rate 61 Result Diagram: 08/05/17 1040 08/05/17 1040 Imaging Last Impressions Lumbar Spine MRI 08/05/17 0000 Signed Impressions: Service Date/Time: Saturday, August 05, 2017 12:48 - CONCLUSION: 1. There has been prior right laminectomy at L3-L4 and L4-L5. At L3-L4, there is very mild canal narrowing secondary to material in the posterior lateral to lateral epidural space, likely representing scar tissue given the appearance and enhancement pattern. 2. At L4-L5 there is no canal stenosis but there is mild to moderate narrowing of the neural foramina bilaterally. MD Barbara Hare VTE Risk Assessment Barbara VTE Risk Assessment: No/Low Risk (score <= 1) Andreirini Risk Assessment Model Point Value = 1 Point Value = 2 Point Value = 3 Point Value = 5 Age 41-60 Minor surgery BMI > 25 kg/m2 Swollen legs Varicose veins or History of unexplained or recurrent spontaneous Oral contraceptives or hormone replacement Sepsis (< 1 month) Serious lung disease, including pneumonia (< 1 month) Abnormal pulmonary function Acute myocardial infarction Congestive heart failure (< 1 month) History of inflammatory bowel disease Medical patient at bed rest Age 61-74 Arthroscopic surgery Major open surgery (> 45 min) Laparoscopic surgery (> 45 min) Malignancy Confined to bed (> 72 hours) Immobilizing plaster cast Central venous access Age >= 75 History of VTE Family history of VTE Factor V Leiden Prothrombin [id number] Lupus anticoagulant Anticardiolipin antibodies Elevated serum homocysteine Heparin-induced thrombocytopenia Other congenital or acquired thrombophilia Stroke (< 1 month) Elective arthroplasty Hip, pelvis, or leg fracture Acute spinal cord injury (< 1 month) Prophylaxis Regimen Total Risk Factor Score Risk Level Prophylaxis Regimen 0-1 Low Early ambulation 2 Moderate Order ONE of the following: *Sequential Compression Device (SCD) *Heparin 5000 units SQ BID 3-4 Higher Order ONE of the following medications: *Heparin 5000 units SQ TID *Enoxaparin/Lovenox 40 mg SQ daily (WT < 150 kg, CrCl > 30 mL/min) *Enoxaparin/Lovenox 30 mg SQ daily (WT < 150 kg, CrCl > 10-29 mL/min) *Enoxaparin/Lovenox 30 mg SQ BID (WT < 150 kg, CrCl > 30 mL/min) AND/OR *Sequential Compression Device (SCD) 5 or more Highest Order ONE of the following medications: *Heparin 5000 units SQ TID (Preferred with Epidurals) *Enoxaparin/Lovenox 40 mg SQ daily (WT < 150 kg, CrCl > 30 mL/min) *Enoxaparin/Lovenox 30 mg SQ daily (WT < 150 kg, CrCl > 10-29 mL/min) *Enoxaparin/Lovenox 30 mg SQ BID (WT < 150 kg, CrCl > 30 mL/min) AND *Sequential Compression Device (SCD) Assessment and Plan Problem List: (1) S/P lumbar laminectomy ICD Code: Z98.890 - Other specified postprocedural states Status: Chronic (2) Impaired mobility and activities of daily living ICD Code: Z74.09 - Other reduced mobility Status: Acute (3) MS (multiple sclerosis) ICD Code: G35 - Multiple sclerosis Status: Chronic (4) Hypertension ICD Code: I10 - Essential (primary) hypertension Status: Chronic Assessment and Plan 76 y/o with a history of MS (not on medication in 3 years), HLD, dementia, HTN, depression and gout complaints of weakness of right leg and right groin pain. Weakness, impaired mobility, worse since lumbar surgery Lumbar MRI reviewed and show laminectomy at L3-L4 and L4-L5 with mild canal narrowing, possible scar tissue -Consult neuro surgery, Dr. Jones, neurology d/w her -Pain management -PT/OT ordered Abdominal pain, patient with right inguinal pain with cough -Abdomen CT ordered r/o hernia -Pain medication with PO Irving Hypokalemia, potassium 3.3 -Supplementation ordered, BMP in am, replace as needed HTN, chronic, elevated, possibly due to pain -Resume home medications bisoprolol-hydrochlorothiazide -Monitor vitals -Vasotec PRN MS, chronic -Discussed at length with Dr. Montes who agreed to see patient and provide input -Patient most likely will need follow up outpatient Depression, chronic: Resume home medication escitalopram Dementia, chronic: Resume home medication Aricept DVT prophylaxis: SCDs This note was transcribed by jacob [Betty Ruiz ]. I, Dr. Berta Horta personally performed the history, physical exam, and medical decision making; and confirmed the accuracy of the information in the transcribed note. Authenticated by Dr. Berta Horta on 08/05/17 at 17:27 Discussed Condition With Patient, RN and ED physician Problem Qualifiers (1) Hypertension: Qualified Codes: I10 - Essential (primary) hypertension Betty Ruiz August 05, 2017 17:04 Berta Horta MD August 05, 2017 17:29
[2017-08-05] MEDS ORDERED: DIATRIZOATE MEGLUM/DIATRIZOATE SOD 9 ML CUP PO ONE (17:12)
[2017-08-05] MEDS ORDERED: DIATRIZOATE MEGLUM/DIATRIZOATE SOD 9 ML CUP ONE (17:19)
[2017-08-05] MEDS ORDERED: ENALAPRILAT 1.25 MG/ML VIAL IV PUSH PRN (17:45)
[2017-08-05] MEDS ORDERED: POTASSIUM CHLORIDE 20 MEQ CONTROLLED RELEASE TAB PO ONE (18:00)
--- NOTE | 2017-08-05 18:15 | MB ---
cc: Ai Montes MD DATE: 08/05/2017 REASON FOR CONSULTATION: Right leg numbness, weakness; however, this has been ongoing for over 10 years, status post laminectomy. HISTORY OF PRESENT ILLNESS: This is a 76-year-old man with a history of MS, follows with my partner, Dr. Posadas, but has been off of MS drugs for about 3 years. Initially, was on Copaxone, then Tecfidera, and then Aubagio. No longer on it because he was having, he states, some liver issues. He has also history of hyperlipidemia, hypertension, some memory issues, dementia, depression, gout. He states he has been having weakness in the right leg for over 10 years, had L4-L5 laminectomy 3 weeks ago. He was feeling a little bit better as far as the pain and had maybe some more movement of the leg, but he never was able to bend it at the knee or dorsiflex his foot, always circumducted his leg when he walked. Apparently, he had some type of a fall on , and he got worse in the right leg. However, he does not think his baseline is any worse than it had been prior to surgery. He sneezed this Thursday, had some bladder loss and pain in his lower spine, and some right upper quadrant pain. PAST MEDICAL HISTORY: MS diagnosed around age 67, hypertension, hyperlipidemia, dementia, depression, gout. PAST SURGICAL HISTORY: L4-L5 laminectomy, left knee surgery, right shoulder surgery, carpal tunnel. HOME MEDICINES: [place] 10/325, citalopram, cannabis oil, furosemide, donepezil 5 mg, Ziac, folic acid, atorvastatin, allopurinol. ALLERGIES: DIPHENHYDRAMINE, PENICILLIN G AND MOXIFLOXACIN, POSSIBLY ALL CILLINS. PHYSICAL EXAMINATION. VITAL SIGNS: Temperature 97.9, pulse 63, respiratory rate 19, blood pressure 142/77, sating at 97% room air. NECK: Supple, no bruits. HEART: Regular. NEUROLOGIC: He is awake and alert. He knows where he is at. His pupils reactive. No afferent pupillary defect. Extraocular muscles intact. Face symmetrical. Tongue midline. Motor, upper extremities intact. He may have a little FDI wasting, but I do not see any signs of a [place] sign, 2-3+ reflexes upper, brisker in the right knee, ankle; left, trace. He does have knee replacement on that left side. His right toe is upgoing. He has no reproducible pain when I lift the right leg up. He has minimal movement in the toes of the right foot. He cannot dorsiflex his ankle or bend at the knee. Gait is withheld. Cerebellar testing, [id number] is unremarkable. LABORATORY AND DIAGNOSTIC DATA: Labs are reviewed. Platelets 143,000. Chemistries: GFR 61, potassium 3.3. He is pending a CT of the abdomen and pelvis with IV contrast given his abdominal complaints. IMPRESSION: Right leg weakness. I do not believe that is due to multiple sclerosis. I think it was possibly due to MS, but from his description, it sounds like things have not changed much. Certainly, we can obtain an MRI of the brain to see if there are any new lesions; however, I do not believe this is an MS exacerbation. He had his lumbar spine with and without contrast, and he is having CT of the abdomen now with oral contrast; somewhat concerning about giving him more contrast. His LS MRI shows prior right hemilaminectomy L3-4, L4-5. At L3-4, there is mild canal narrowing due to material in the posterolateral to lateral epidural space, representing scar given the appearance of enhancement. L4-5, no stenosis, mild to moderate narrowing of the neural foramina bilaterally. I would continue current medical care and will get a scan of the brain right now. I will hold off on doing the cervical and thoracic spine. I will go ahead and do the MRI of the brain without contrast initially. Continue current care. MD REYNA Whiteside/WHITNEY , 05:37 PM , 06:14 PM
[2017-08-05] MEDS ORDERED: IOHEXOL 350 MG/ML 10 ML VIAL (for RAD DIAG) IVCONTRAST ONE (20:00)
--- NOTE | 2017-08-05 20:33 | RADRPT ---
EXAM DATE/TIME: 08/05/2017 19:54 [facility] COMPARISON: No previous studies available for comparison. INDICATIONS : Right side abdominal pain. IV CONTRAST: 80 cc Omnipaque 350 (iohexol) IV ORAL CONTRAST: Prescribed oral contrast ingested. RADIATION DOSE: 23.05 CTDIvol (mGy) MEDICAL HISTORY : Hypertension. Renal calculi. Multiple sclerosis. SURGICAL HISTORY : Lumbar laminectomy. ENCOUNTER: Initial ACUITY: 2 days PAIN SCALE: 8/10 LOCATION: Right abdomen. TECHNIQUE: Volumetric scanning of the abdomen and pelvis was performed. Using automated exposure control and ad justment of the mA and/or kV according to patient size, radiation dose was kept as low as reasonably achievable to obtain optimal diagnostic quality images. DICOM format image data is available electro nically for review and comparison. FINDINGS: LOWER LUNGS: The visualized lower lungs are clear. LIVER: Homogeneous density without lesion. There is no dilation of the biliary tree. No calcified gallston es. SPLEEN: Normal size without lesion. PANCREAS: Within normal limits. KIDNEYS: Normal in size and shape. There is no mass, stone or hydronephrosis on the right. Punctate nonobstru cting left-sided renal calculi measures to 3 mm ADRENAL GLANDS: Within normal limits. VASCULAR: There is no aortic aneurysm. Atherosclerotic changes abdominal aorta BOWEL/MESENTERY: Diverticulosis without diverticulitis. There is no free intraperitoneal air or fluid. ABDOMINAL WALL: Within normal limits. RETROPERITONEUM: There is no lymphadenopathy. BLADDER: No wall thickening or mass. REPRODUCTIVE: Within normal limits. INGUINAL: There is no lymphadenopathy or hernia. MUSCULOSKELETAL: Degenerative changes lumbar spine. CONCLUSION: 1. Diverticulosis without diverticulitis. 2. Nonobstructing left-sided renal calculi. 3. No acute inflammatory process. 4. Normal appendix. Oneal Phillips MD on August 05, 2017 at 20:30 Board Certified Radiologist. This report was verified electronically.
[2017-08-05] MEDS: ENOXAPARIN SODIUM 40 MG/0.4 ML SYRINGE SQ SCH (20:42)
[2017-08-05] MEDS: ATORVASTATIN 40 MG TAB PO SCH (20:42)
[2017-08-05] MEDS: DONEPEZIL HCL 5 MG TAB PO SCH (20:42)
[2017-08-05] MEDS: DOCUSATE SODIUM 50 MG/SENNA 8.6 MG TAB PO SCH ×2 (20:42→21:00)
--- NOTE | 2017-08-05 22:03 | RADRPT ---
EXAM DATE/TIME: 08/05/2017 21:17 [facility] COMPARISON: No previous studies available for comparison. INDICATIONS : Multiple Sclerosis. Fall CONTRAST: 18 cc Omniscan (gadodiamide) IV MEDICAL HISTORY : Hypertension. SURGICAL HISTORY : Shoulder, Lt knee, lumbar laminectomy ENCOUNTER: Initial ACUITY: 1 day PAIN SCORE: 0/10 LOCATION: Brain TECHNIQUE: Multiplanar, multisequence MRI of the brain was performed both prior to and following the administrat ion of paramagnetic contrast. FINDINGS: CEREBRUM: The ventricles are normal for age. No evidence of midline shift, mass lesion, hemorrhage or acute in farction. No extraaxial fluid collections are seen. The pituitary gland and suprasellar cistern are normal in configuration. WHITE MATTER: No significant signal abnormalities are seen in the white matter. POSTERIOR FOSSA: The cerebellum and brainstem are intact. The 4th ventricle is midline. The cerebellopontine angle is unremarkable. The cerebellar tonsils are normal in position. DIFFUSION IMAGING: No focal areas of restricted diffusion are seen. No evidence of acute infarction. EXTRACRANIAL: The visualized portions of the orbits and paranasal sinuses are unremarkable. POST-CONTRAST: No abnormal areas of parenchymal or dural enhancement. No evidence of blood-brain barrier breakdown. CONCLUSION: Unremarkable MRI of the brain. Oneal Phillips MD on August 05, 2017 at 21:59 Board Certified Radiologist. This report was verified electronically.
[2017-08-06] VITALS (11 sets, daily range): BP systolic 105–170; BP diastolic 56–81; PULSE 60–71; RESP 16–20; TEMP 97.5–98; O2SAT 95–98
[2017-08-06 07:43] LABS: BICARBONATE 32.8 MEQ/L (21.0-32.0); CALCIUM 8.8 MG/DL (8.5-10.1); CREATININE 1.03 MG/DL (0.60-1.30)
[2017-08-06] MEDS ORDERED: BISOPROLOL HYDROCHLOROTHIAZIDE PO SCH (09:00)
--- NOTE | 2017-08-06 09:02 | HHI.PR ---
Subjective Remarks Follow-up for fall, lower extremity weakness, recent L3-L4, L4-L5 decompressive laminectomy. Patient is currently resting in bed. No chest pain, shortness of breath, fever or chills. Objective Vitals Vital Signs Date Time Temp Pulse Resp B/P (MAP) Pulse Ox O2 Delivery O2 Flow Rate FiO2 08/06/17 05:53 95 21 08/06/17 05:34 146/72 (96) 08/06/17 05:23 97.5 67 16 170/81 (110) 97 08/06/17 01:01 98.0 71 16 117/66 (83) 95 08/06/17 00:39 64 08/05/17 20:50 97.6 69 16 140/69 (92) 94 08/05/17 18:56 50 20 130/92 (105) 98 08/05/17 17:15 63 19 142/77 (98) 97 Room Air 08/05/17 16:28 97 21 08/05/17 14:30 57 19 180/80 (113) 97 Room Air 08/05/17 11:00 57 19 166/77 (106) 97 Room Air 08/05/17 10:38 97 Room Air 08/05/17 10:38 75 18 08/05/17 10:19 97.9 64 20 164/67 (99) 98 Result Diagram: 08/05/17 1040 08/06/17 0602 Imaging Last Impressions Thoracic Spine MRI 08/06/17 0000 Signed Impressions: Service Date/Time: August 10:22 - CONCLUSION: 1. No significant disc herniation, canal stenosis, or neural foraminal stenosis. 2. There is a nonspecific 8mm lesion within the T8 vertebral body. It may represent an atypical hemangioma but is nonspecific. No other concerning bone lesion is seen. Bhupinder Murdock MD Cervical Spine MRI 08/06/17 0000 Signed Impressions: Service Date/Time: August 10:22 - CONCLUSION: 1. There is nonspecific, abnormal T2 signal within the central aspect of the cord extending from the mid body of C2 down to the inferior endplate of C4. This is best appreciated on the sagittal inversion recovery images. There is no evidence of contrast enhancement within this. Differential considerations would include a transverse myelitis or other demyelinative process. 2. Degenerative changes in the cervical spine as above. These are most significant at C5-6 and C6-7. Individual levels are dictated detail above. Terence Martinez MD Lumbar Spine MRI 08/05/17 Signed Impressions: Service Date/Time: Saturday, August 05, 2017 12:48 - CONCLUSION: 1. There has been prior right laminectomy at L3-L4 and L4-L5. At L3-L4, there is very mild canal narrowing secondary to material in the posterior lateral to lateral epidural space, likely representing scar tissue given the appearance and enhancement pattern. 2. At L4-L5 there is no canal stenosis but there is mild to moderate narrowing of the neural foramina bilaterally. Bhupinder Murdock MD Brain MRI 08/05/17 0000 Signed Impressions: Service Date/Time: Saturday, August 05, 2017 21:17 - CONCLUSION: Unremarkable MRI of the brain. Oneal Phillips MD Abdomen/Pelvis CT 08/05/17 Signed Impressions: Service Date/Time: Saturday, August 05, 2017 19:54 - CONCLUSION: 1. Diverticulosis without diverticulitis. 2. Nonobstructing left-sided renal calculi. 3. No acute inflammatory process. 4. Normal appendix. Oneal Phillips MD Objective Remarks GENERAL: Alert, oriented 3, NAD. SKIN: Warm and dry. HEAD: Normocephalic. EYES: No scleral icterus. No injection or drainage. NECK: Supple, trachea midline. No JVD or lymphadenopathy. CARDIOVASCULAR: Regular rate and rhythm without murmurs, gallops, or rubs. RESPIRATORY: Breath sounds equal bilaterally. No accessory muscle use. GASTROINTESTINAL: Abdomen soft, non-tender, nondistended. MUSCULOSKELETAL: No cyanosis, or edema. BACK: Nontender without obvious deformity. No CVA tenderness. Procedures None A/P Problem List: (1) S/P lumbar laminectomy ICD Code: Z98.890 - Other specified postprocedural states Status: Chronic (2) Impaired mobility and activities of daily living ICD Code: Z74.09 - Other reduced mobility Status: Acute (3) MS (multiple sclerosis) ICD Code: G35 - Multiple sclerosis Status: Chronic (4) Hypertension ICD Code: I10 - Essential (primary) hypertension Status: Chronic (5) Transverse myelitis ICD Code: G37.3 - Acute transverse myelitis in demyelinating disease of central nervous system Assessment and Plan Mr. Patterson is a pleasant 76-year-old male with a recent history of L3-L4 , L4-L5 decompressive laminectomy who fell at home and also experienced lower extremity weakness. He had a forceful sneeze which caused him to lose control of his lower extremity. He also complains of bowel and bladder difficulties. Neurosurgery evaluated patient again on 08/06/2017. L-spine MRI was done upon admission. Neurosurgery obtained C-spine and T-spine MRI which shows possibility of transverse myelitis. Probable transverse myelitis History of multiple sclerosis -Appreciate neurosurgery input. I discussed with neurologist regarding MRI findings. -We will start patient on Solu-Medrol 500 mg twice daily for 3 days. -PT, OT evaluation pending. Dementia Depression Hyperlipidemia -Continue home medications Lipitor 40 mg, Aricept 5 mg, Lexapro 10 mg. Mild hypokalemia -potassium was 3.3. Supplemental potassium was given. Repeat potassium shows 5.0. However labs indicate that blood sample was slightly hemolyzed. We will repeat serum potassium this afternoon. Full code. SCDs. Problem Qualifiers (1) Hypertension: Qualified Codes: I10 - Essential (primary) hypertension Quintin Ham DO August 06, 2017 9:02 am
[2017-08-06] MEDS: FUROSEMIDE 20 MG TAB PO SCH (09:21)
[2017-08-06] MEDS: ESCITALOPRAM OXALATE 10 MG TAB PO SCH (09:22)
[2017-08-06] MEDS: ALLOPURINOL 300 MG TAB PO SCH (09:22)
[2017-08-06] MEDS: FOLIC ACID 1 MG TAB PO SCH (09:22)
[2017-08-06] MEDS: DOCUSATE SODIUM 50 MG/SENNA 8.6 MG TAB PO SCH ×2 (09:23→21:00)
[2017-08-06] MEDS ORDERED: GADODIAMIDE PF 287 MG/ML 20 ML VIAL (for RAD MRI) IVCONTRAST ONE (10:25)
--- NOTE | 2017-08-06 12:06 | RADRPT ---
EXAM DATE/TIME: 08/06/2017 10:22 [facility] COMPARISON: No previous studies available for comparison. INDICATIONS : Back pain with numbness down right leg. CONTRAST: 18 cc Omniscan (gadodiamide) IV MEDICAL HISTORY : Hypertension. SURGICAL HISTORY : Shoulder, knee lumbar laminectomy ENCOUNTER: Subsequent ACUITY: 2 day PAIN SCORE: 3/10 LOCATION: lower back TECHNIQUE: Multiplanar multisequence MRI of the thoracic spine was performed. FINDINGS: VERTEBRA: Normal vertebral body height. Bone marrow signal is within normal limits. There is a partially T1 hyp erintense 10 mm lesion in the T4 vertebral body or lamar layo hemangioma. In the T8 vertebral body on the left there is an 8mm T2 hyperintense and T1 iso-to slightly hypointense lesion which demonstra kellie enhancement. Small endplate osteophytes are present anteriorly at multiple levels. ALIGNMENT: No anterolisthesis or retrolisthesis. CORD: Normal position and configuration. POST CONTRAST: No abnormal areas of contrast enhancement seen. T1-T2: No disc herniation, canal stenosis, or neural foraminal stenosis. T2-T3: No disc herniation, canal stenosis, or neural foraminal stenosis. T3-T4: The thecal sac has a normal diameter. No evidence of disc bulge or protrusion. T4-T5: The thecal sac has a normal diameter. No evidence of disc bulge or protrusion. T5-T6: The thecal sac has a normal diameter. No evidence of disc bulge or protrusion. T6-T7: The thecal sac has a normal diameter. No evidence of disc bulge or protrusion. T7-T8: The thecal sac has a normal diameter. No evidence of disc bulge or protrusion. T8-T9: The thecal sac has a normal diameter. No evidence of disc bulge or protrusion. T9-T10: The thecal sac has a normal diameter. No evidence of disc bulge or protrusion. T10-T11: The thecal sac has a normal diameter. No evidence of disc bulge or protrusion. T11-T12: The thecal sac has a normal diameter. No evidence of disc bulge or protrusion. T12-L1: The thecal sac has a normal diameter. No evidence of disc bulge or protrusion. CONCLUSION: 1. No significant disc herniation, canal stenosis, or neural foraminal stenosis. 2. There is a nonspecific 8mm lesion within the T8 vertebral body. It may represent an atypical heman gioma but is nonspecific. No other concerning bone lesion is seen. Bhupinder Murdock MD on August 06, 2017 at 12:00 Board Certified Radiologist. This report was verified electronically.
--- NOTE | 2017-08-06 12:08 | RADRPT ---
EXAM DATE/TIME: 08/06/2017 10:22 [facility] COMPARISON: MRI BRAIN W & W/O CONTRAST, August 05, 2017, 21:17. INDICATIONS : Back pain with numbness running down rigth leg. CONTRAST: 18 cc Omniscan (gadodiamide) IV MEDICAL HISTORY : Hypertension. SURGICAL HISTORY : shoulder, knee, lumbar laminectomy ENCOUNTER: Subsequent ACUITY: 2 day PAIN SCORE: 3/10 LOCATION: back TECHNIQUE: Multiplanar, multisequence MRI examination of the cervical spine was performed. FINDINGS: Sagittal T1, T2 and postcontrast T1-weighted imaging is provided. The examination demonstrates adequa te alignment of the cervical vertebral bodies. No significant abnormal marrow signal is seen within t he vertebral bodies. The overall alignment is adequate. There is moderate degenerative disc disease. The examination does demonstrate area of abnormal T2 signal within the central aspect of the cord ext ending from the mid body of C2 down to the inferior endplate of C4. There is no evidence of contrast enhancement within this on the postcontrast images. C2-C3: There is mild facet arthritis bilaterally. The thecal space and neural foramina are adequate. C3-C4: There is a degenerated disc. There is mild osteophytic ridging. There is minimal disc bulge. There is mild facet arthritis bilaterally. The thecal space and foramina appear adequate. C4-C5: There is desiccation of the disc with minimal disc bulge. There is mild facet arthritis bilaterally. The thecal space and neural foramina are adequate. C5-C6: There is a degenerated disc with broad-based disc bulge and osteophytic ridging. This effaces the amparo tral thecal sac and abuts the ventral aspect of the cord. There is mild facet arthritis bilaterally. The foramina appear adequate. C6-C7: There is a degenerated disc. There is broad-based disc bulge and osteophytic ridging. This effaces th e ventral thecal sac and abuts the ventral aspect of the cord. The foramina are adequate. There is mi ld facet arthritis bilaterally. C7-T1: There is partial desiccation of the disc. The thecal space and neural foramina are adequate. CONCLUSION: 1. There is nonspecific, abnormal T2 signal within the central aspect of the cord extending from the mid body of C2 down to the inferior endplate of C4. This is best appreciated on the sagittal inversio n recovery images. There is no evidence of contrast enhancement within this. Differential considerati ons would include a transverse myelitis or other demyelinative process. 2. Degenerative changes in the cervical spine as above. These are most significant at C5-6 and C6-7. Individual levels are dictated detail above. Terence Martinez MD on August 06, 2017 at 12:01 Board Certified Radiologist. This report was verified electronically.
--- NOTE | 2017-08-06 13:23 | HHI.NSPN ---
(Mayra Elizondo) Note Status Status: Progress Note (Mayra Elizondo) Interval History Interval History Mr. Patterson underwent a right L3-4 L4-L5 decompressive laminectomy, mesial facetectomy, foraminotomy with microsurgical resection of the disc on Jul 15, 2017 for lumbar spinal stenosis. Mr. Solis reports he has been falling at home as his legs will give out. He also reports having a forceful sneeze with increased lumbar and radicular pain. However he complains of new onset of bowel and bladder difficulties. (Mayra Elizondo) Labs, Micro, & Vital Signs Results Date Time Temp Pulse Resp B/P (MAP) Pulse Ox O2 Delivery O2 Flow Rate FiO2 08/06/17 12:52 98.0 60 16 137/75 (95) 98 138/67 (90) 08/06/17 05:53 95 21 08/06/17 05:34 146/72 (96) 08/06/17 05:23 97.5 67 16 170/81 (110) 97 08/06/17 01:01 98.0 71 16 117/66 (83) 95 08/06/17 00:39 64 08/05/17 20:50 97.6 69 16 140/69 (92) 94 08/05/17 18:56 50 20 130/92 (105) 98 08/05/17 17:15 63 19 142/77 (98) 97 Room Air 08/05/17 16:28 97 21 08/05/17 14:30 57 19 180/80 (113) 97 Room Air Constitutional Vital Signs Date Time Temp Pulse Resp B/P (MAP) Pulse Ox O2 Delivery O2 Flow Rate FiO2 08/06/17 12:52 98.0 60 16 137/75 (95) 98 138/67 (90) 08/06/17 05:53 95 21 08/06/17 05:34 146/72 (96) 08/06/17 05:23 97.5 67 16 170/81 (110) 97 08/06/17 01:01 98.0 71 16 117/66 (83) 95 08/06/17 00:39 64 08/05/17 20:50 97.6 69 16 140/69 (92) 94 08/05/17 18:56 50 20 130/92 (105) 98 08/05/17 17:15 63 19 142/77 (98) 97 Room Air 08/05/17 16:28 97 21 08/05/17 14:30 57 19 180/80 (113) 97 Room Air (Mayra Elizondo) Review of Systems Constitutional: DENIES: Fever Genitourinary: COMPLAINS OF: Urinary incontinence Neurologic: COMPLAINS OF: Localized weakness, Paresthesias, Poor Balance (Mayra Elizondo) Physical Exam General: Mr. Patterson is in no obvious distress during examination. Neuro: Awake, alert and oriented to person, place, and time. Speech is clear and fluent. Can follow single and multi-step commands without apraxia. Cranial nerve: pupils equal, round, and reactive to light. Extra-ocular movements are intact with normal convergence. Facial motor are normal and symmetrical. HEENT: Normocephalic, atraumatic. Hearing aids right ear. Neck: soft, supple Musculoskeletal: In the lower extremities, strength is 2/5 right iliopsoas, 2/5 right quadriceps, hamstring, tibialis anterior. 5/5 left iliopsoas, quadriceps, hamstrings, tibialis anterior, gastrocnemius,. Cerebellar: intact finger to nose bilaterally Skin: warm and dry, no cyanosis, surgical incision is healing well, no redness, drainage, erythema or other signs of infection (Mayra Elizondo) Medications Current Medications Current Medications Medications (Trade) Dose Ordered Sig/Sanam Route PRN Reason Start Time Stop Time Status Last Admin Dose Admin Allopurinol (Zyloprim) 300 mg DAILY PO 08/06/17 09:00 08/06/17 09:22 Atorvastatin Calcium (Lipitor) 40 mg HS PO 08/05/17 21:00 08/05/17 20:42 Donepezil HCl (Aricept) 5 mg HS PO 08/05/17 21:00 08/05/17 20:42 Escitalopram Oxalate (Lexapro) 10 mg DAILY PO 08/06/17 09:00 08/06/17 09:22 Folic Acid (Folate) 1 mg DAILY PO 08/06/17 09:00 08/06/17 09:22 Furosemide (Lasix) 20 mg DAILY PO 08/06/17 09:00 08/06/17 09:21 Patient Own Medication PT OWN MED: (Bisoprolol-Hydrochlo... DAILY PO 08/06/17 09:00 Future Hold Ondansetron HCl (Zofran Inj) 4 mg Q6H PRN IVP NAUSEA OR VOMITING 08/05/17 16:30 Enoxaparin Sodium (Lovenox Inj) 40 mg Q24H SQ 08/05/17 20:00 08/05/17 20:42 Acetaminophen/ Hydrocodone Bitart (Igo 5-325 Mg) 1 tab Q4H PRN PO PAIN SCALE 3 TO 5 08/05/17 16:30 08/06/17 06:40 Acetaminophen/ Hydrocodone Bitart (Igo 7.5-325 Mg) 1 tab Q4H PRN PO PAIN SCALE 6 TO 10 08/05/17 16:30 Morphine Sulfate (Morphine Inj) 4 mg Q3H PRN IV PUSH BREAKTHROUGH PAIN 08/05/17 16:30 08/05/17 18:25 Naloxone HCl (Narcan Inj) 0.4 mg UNSCH PRN IV PUSH SEE LABEL COMMENTS 08/05/17 16:30 Senna/Docusate Sodium (Maria Eugenia-Colace) 1 tab BID PO 08/05/17 21:00 Magnesium Hydroxide (Milk Of Magnesia Liq) 30 ml Q12H PRN PO Mild constipation 08/05/17 16:30 Enalaprilat (Vasotec Inj) 1.25 mg Q6H PRN IV PUSH SBP>160, DBP>90 08/05/17 17:45 (Mayra Elizondo) Medical Decision Making MDM Remarks 76 year old male s/p right L3-4 L4-L5 decompressive laminectomy, mesial facetectomy, foraminotomy with microsurgical resection of the disc on Jul 15, 2017 for lumbar spinal stenosis He presents with recurrent falls and acute bowel and bladder incontinence Last Impressions Thoracic Spine MRI 08/06/17 0000 Signed Impressions: Service Date/Time: August 10:22 - CONCLUSION: 1. No significant disc herniation, canal stenosis, or neural foraminal stenosis. 2. There is a nonspecific 8mm lesion within the T8 vertebral body. It may represent an atypical hemangioma but is nonspecific. No other concerning bone lesion is seen. Bhupinder Murdock MD Cervical Spine MRI 08/06/17 Signed Impressions: Service Date/Time: August 10:22 - CONCLUSION: 1. There is nonspecific, abnormal T2 signal within the central aspect of the cord extending from the mid body of C2 down to the inferior endplate of C4. This is best appreciated on the sagittal inversion recovery images. There is no evidence of contrast enhancement within this. Differential considerations would include a transverse myelitis or other demyelinative process. 2. Degenerative changes in the cervical spine as above. These are most significant at C5-6 and C6-7. Individual levels are dictated detail above. Terence Martinez MD Lumbar Spine MRI 08/05/17 Signed Impressions: Service Date/Time: Saturday, August 05, 2017 12:48 - CONCLUSION: 1. There has been prior right laminectomy at L3-L4 and L4-L5. At L3-L4, there is very mild canal narrowing secondary to material in the posterior lateral to lateral epidural space, likely representing scar tissue given the appearance and enhancement pattern. 2. At L4-L5 there is no canal stenosis but there is mild to moderate narrowing of the neural foramina bilaterally. Bhupinder Murdock MD Brain MRI 08/05/17 Signed Impressions: Service Date/Time: Saturday, August 05, 2017 21:17 - CONCLUSION: Unremarkable MRI of the brain. Oneal Phillips MD Abdomen/Pelvis CT 08/05/17 Signed Impressions: Service Date/Time: Saturday, August 05, 2017 19:54 - CONCLUSION: 1. Diverticulosis without diverticulitis. 2. Nonobstructing left-sided renal calculi. 3. No acute inflammatory process. 4. Normal appendix. Oneal Phillips MD (Mayra Elizondo) Plan Plan Remarks MRI of the lumbar spine reviewed by Dr. Jones, recommends nonoperative management, MRI of the cervical and thoracic spine completed, Dr. Jones to defer to neurology for further treatment of possible transverse myelitis Physical therapy Discussed with hospitalist Dr. Ham (Mayra Elizondo) Attending Statement The exam, history, and the medical decision-making described in the above note were completed with the assistance of the mid-level provider. I reviewed and agree with the findings presented. I attest that I had a [id number] encounter with the patient on the same day, and personally performed and documented my assessment and findings in the medical record. (Etienne Jones MD) Mayra Elizondo August 06, 2017 13:23 Etienne Jones MD August 07, 2017 16:08
[2017-08-06] MEDS: ACETAMINOPHEN/HYDROcodone 325 MG/7.5 MG TAB PO PRN ×2 (13:47→21:02)
[2017-08-06] MEDS ORDERED: methylPREDNISolone SOD SUCC 125 MG/2 ML VIAL IV PUSH SCH (14:00)
--- NOTE | 2017-08-06 14:51 | HHI.PR ---
Subjective Remarks Feels a bit better.he states he has had weakness in the right leg for many years.Actually circumducts it when he ambulates. He again states it is not weaker than before.He felt back pain and felt a pop when he sneezed recently. I have his brain cervical and thoracic mri reports from 11/2016 from our office- it's now in his sbahrt. Objective Vital Signs Date Time Temp Pulse Resp B/P (MAP) Pulse Ox O2 Delivery O2 Flow Rate FiO2 08/06/17 12:52 98.0 60 16 137/75 (95) 98 138/67 (90) 08/06/17 05:53 95 21 08/06/17 05:34 146/72 (96) 08/06/17 05:23 97.5 67 16 170/81 (110) 97 08/06/17 01:01 98.0 71 16 117/66 (83) 95 08/06/17 00:39 64 08/05/17 20:50 97.6 69 16 140/69 (92) 94 08/05/17 18:56 50 20 130/92 (105) 98 08/05/17 17:15 63 19 142/77 (98) 97 Room Air 08/05/17 16:28 97 21 Result Diagram: 08/05/17 1040 08/06/17 0602 Objective Remarks awake and alert fdi wasting ue intact rle unable to lift off bed ,foot drop brisk dtr and upgoing toe on the right. 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 no new lesions from 11/2016 and todays scans no enhancements. -pt refused solumedrol as he had adverse reaction to it?psychosis-refused to try even a lower dose. -recommend PT in or outpt and can f/u Dr Posadas in office-?reconsider disease modifying drugs again if wants. Ai Montes MD August 06, 2017 14:51
[2017-08-06] MEDS ORDERED: methylPREDNISolone SO SUCC INJ 500 MG in DEXTROSE 5% IN WATER 100ML INJ 100 ML IV SCH ×2 (16:00)
[2017-08-06] MEDS: ATORVASTATIN 40 MG TAB PO SCH (21:01)
[2017-08-06] MEDS: DONEPEZIL HCL 5 MG TAB PO SCH (21:01)
[2017-08-06] MEDS: ENOXAPARIN SODIUM 40 MG/0.4 ML SYRINGE SQ SCH (21:02)
[2017-08-07] VITALS: PULSE 65
[2017-08-07 04:01] VITALS: PULSE 68
[2017-08-07 04:41] VITALS: BP 129/67; PULSE 68; RESP 16; TEMP 98.2; O2SAT 97
[2017-08-07 07:39] VITALS: BP 141/85; PULSE 68; RESP 20; TEMP 97.4; O2SAT 95
[2017-08-07 07:52] VITALS: PULSE 69
[2017-08-07] MEDS: ESCITALOPRAM OXALATE 10 MG TAB PO SCH (08:40)
[2017-08-07] MEDS: ALLOPURINOL 300 MG TAB PO SCH (08:40)
[2017-08-07] MEDS: FOLIC ACID 1 MG TAB PO SCH (08:40)
[2017-08-07] MEDS: FUROSEMIDE 20 MG TAB PO SCH (08:40)
[2017-08-07] MEDS: DOCUSATE SODIUM 50 MG/SENNA 8.6 MG TAB PO SCH (08:41)
[2017-08-07 11:44] VITALS: BP 136/70; PULSE 75; RESP 20; TEMP 97.9; O2SAT 96
[2017-08-07] MEDS ORDERED: K-TA10TA PO (12:09)
--- NOTE | 2017-08-07 12:48 | HHI.NSPN ---
(Mayra Elizondo) Note Status Status: Progress Note (Mayra Elizondo) Interval History Interval History Mr. Patterson underwent a right L3-4 L4-L5 decompressive laminectomy, mesial facetectomy, foraminotomy with microsurgical resection of the disc on Jul 15, 2017 for lumbar spinal stenosis. Mr. Solis reports he has been falling at home as his legs will give out. He also reports having a forceful sneeze with increased lumbar and radicular pain. However he complains of new onset of bowel and bladder difficulties. 08/07: reports to be feeling better today, right leg a bit stronger, and ambulating. also reports bowel and bladder control better today. pt adamantly refusing steroid therapy as he had a adverse reaction to prednisone in the past. (Mayra Elizondo) Labs, Micro, & Vital Signs Results Date Time Temp Pulse Resp B/P (MAP) Pulse Ox O2 Delivery O2 Flow Rate FiO2 08/07/17 11:44 97.9 75 20 136/70 (92) 96 08/07/17 07:52 69 08/07/17 07:39 97.4 68 20 141/85 (103) 95 08/07/17 04:41 98.2 68 16 129/67 (87) 97 08/07/17 04:01 68 08/07/17 00:00 65 08/06/17 23:45 97.9 61 17 120/70 (87) 96 08/06/17 22:30 18 08/06/17 20:30 96 08/06/17 20:18 68 08/06/17 19:56 98.0 69 17 113/61 (78) 96 08/06/17 15:36 97.6 65 20 105/56 (72) 95 Manual Cuff/Auscultation 08/06/17 12:52 98.0 60 16 137/75 (95) 98 138/67 (90) Constitutional Vital Signs Date Time Temp Pulse Resp B/P (MAP) Pulse Ox O2 Delivery O2 Flow Rate FiO2 08/07/17 11:44 97.9 75 20 136/70 (92) 96 08/07/17 07:52 69 08/07/17 07:39 97.4 68 20 141/85 (103) 95 08/07/17 04:41 98.2 68 16 129/67 (87) 97 08/07/17 04:01 68 08/07/17 00:00 65 08/06/17 23:45 97.9 61 17 120/70 (87) 96 08/06/17 22:30 18 08/06/17 20:30 96 08/06/17 20:18 68 08/06/17 19:56 98.0 69 17 113/61 (78) 96 08/06/17 15:36 97.6 65 20 105/56 (72) 95 Manual Cuff/Auscultation 08/06/17 12:52 98.0 60 16 137/75 (95) 98 138/67 (90) (Mayra Elizondo) Review of Systems Constitutional: DENIES: Fever Musculoskeletal: COMPLAINS OF: Stiffness Neurologic: COMPLAINS OF: Abnormal gait, Localized weakness, Poor Balance (Mayra Elizondo) Physical Exam General: Mr. Patterson is in no obvious distress during examination. Neuro: Awake, alert and oriented to person, place, and time. Speech is clear and fluent. Can follow single and multi-step commands without apraxia. Cranial nerve: pupils equal, round, and reactive to light. Extra-ocular movements are intact with normal convergence. Facial motor are normal and symmetrical. HEENT: Normocephalic, atraumatic. Hearing aids right ear. Neck: soft, supple Musculoskeletal: In the lower extremities, strength is 3/5 right iliopsoas, 3/5 right quadriceps, hamstring, tibialis anterior. 5/5 left iliopsoas, quadriceps, hamstrings, tibialis anterior, gastrocnemius,. Cerebellar: intact finger to nose bilaterally Skin: warm and dry, no cyanosis, surgical incision is healing well, no redness, drainage, erythema or other signs of infection (Mayra Elizondo) Medications Current Medications Current Medications Medications (Trade) Dose Ordered Sig/Sanam Route PRN Reason Start Time Stop Time Status Last Admin Dose Admin Allopurinol (Zyloprim) 300 mg DAILY PO 08/06/17 09:00 08/07/17 08:40 Atorvastatin Calcium (Lipitor) 40 mg HS PO 08/05/17 21:00 08/06/17 21:01 Donepezil HCl (Aricept) 5 mg HS PO 08/05/17 21:00 08/06/17 21:01 Escitalopram Oxalate (Lexapro) 10 mg DAILY PO 08/06/17 09:00 08/07/17 08:40 Folic Acid (Folate) 1 mg DAILY PO 08/06/17 09:00 08/07/17 08:40 Furosemide (Lasix) 20 mg DAILY PO 08/06/17 09:00 08/07/17 08:40 Patient Own Medication PT OWN MED: (Bisoprolol-Hydrochlo... DAILY PO 08/06/17 09:00 Future Hold Ondansetron HCl (Zofran Inj) 4 mg Q6H PRN IVP NAUSEA OR VOMITING 08/05/17 16:30 Enoxaparin Sodium (Lovenox Inj) 40 mg Q24H SQ 08/05/17 20:00 08/06/17 21:02 Acetaminophen/ Hydrocodone Bitart (Herrick 5-325 Mg) 1 tab Q4H PRN PO PAIN SCALE 3 TO 5 08/05/17 16:30 08/06/17 06:40 Acetaminophen/ Hydrocodone Bitart (Herrick 7.5-325 Mg) 1 tab Q4H PRN PO PAIN SCALE 6 TO 10 08/05/17 16:30 08/06/17 21:02 Morphine Sulfate (Morphine Inj) 4 mg Q3H PRN IV PUSH BREAKTHROUGH PAIN 08/05/17 16:30 08/05/17 18:25 Naloxone HCl (Narcan Inj) 0.4 mg UNSCH PRN IV PUSH SEE LABEL COMMENTS 08/05/17 16:30 Senna/Docusate Sodium (Maria Eugenia-Colace) 1 tab BID PO 08/05/17 21:00 Magnesium Hydroxide (Milk Of Magnesia Liq) 30 ml Q12H PRN PO Mild constipation 08/05/17 16:30 Enalaprilat (Vasotec Inj) 1.25 mg Q6H PRN IV PUSH SBP>160, DBP>90 08/05/17 17:45 (Mayra Elizondo) Medical Decision Making MDM Remarks 76 year old male s/p right L3-4 L4-L5 decompressive laminectomy, mesial facetectomy, foraminotomy with microsurgical resection of the disc on Jul 15, 2017 for lumbar spinal stenosis He presents with recurrent falls and acute bowel and bladder incontinence cervical myelitis Last Impressions Thoracic Spine MRI 08/06/17 Signed Impressions: Service Date/Time: August 10:22 - CONCLUSION: 1. No significant disc herniation, canal stenosis, or neural foraminal stenosis. 2. There is a nonspecific 8mm lesion within the T8 vertebral body. It may represent an atypical hemangioma but is nonspecific. No other concerning bone lesion is seen. Bhupinder Murdock MD Cervical Spine MRI 08/06/17 Signed Impressions: Service Date/Time: August 10:22 - CONCLUSION: 1. There is nonspecific, abnormal T2 signal within the central aspect of the cord extending from the mid body of C2 down to the inferior endplate of C4. This is best appreciated on the sagittal inversion recovery images. There is no evidence of contrast enhancement within this. Differential considerations would include a transverse myelitis or other demyelinative process. 2. Degenerative changes in the cervical spine as above. These are most significant at C5-6 and C6-7. Individual levels are dictated detail above. Terence Martinez MD Lumbar Spine MRI 08/05/17 Signed Impressions: Service Date/Time: Saturday, August 05, 2017 12:48 - CONCLUSION: 1. There has been prior right laminectomy at L3-L4 and L4-L5. At L3-L4, there is very mild canal narrowing secondary to material in the posterior lateral to lateral epidural space, likely representing scar tissue given the appearance and enhancement pattern. 2. At L4-L5 there is no canal stenosis but there is mild to moderate narrowing of the neural foramina bilaterally. Bhupinder Murdock MD Brain MRI 08/05/17 0000 Signed Impressions: Service Date/Time: Saturday, August 05, 2017 21:17 - CONCLUSION: Unremarkable MRI of the brain. Oneal Phillips MD Abdomen/Pelvis CT 08/05/17 Signed Impressions: Service Date/Time: Saturday, August 05, 2017 19:54 - CONCLUSION: 1. Diverticulosis without diverticulitis. 2. Nonobstructing left-sided renal calculi. 3. No acute inflammatory process. 4. Normal appendix. Oneal Phillips MD (Mayra Elizondo) Plan Plan Remarks MRI of the lumbar spine reviewed by Dr. Jones, recommends nonoperative management, MRI of the cervical and thoracic spine completed, Dr. Jones to defer to neurology for further treatment of possible transverse myelitis, pt refusing steroid therapy cont Physical therapy clinically better today Dr. Jones cleared to [facility] will arrange for [facility] Physical Therapy (Mayra Elizondo) Attending Statement The exam, history, and the medical decision-making described in the above note were completed with the assistance of the mid-level provider. I reviewed and agree with the findings presented. I attest that I had a [id number] encounter with the patient on the same day, and personally performed and documented my assessment and findings in the medical record. (Etienne Jones MD) Mayra Elizondo August 07, 2017 12:48 Etienne Jones MD August 07, 2017 16:11
--- NOTE | 2017-08-07 13:43 | HHI.DS ---
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 76 y/o with a history of MS (not on medication in 3 years), HLD, dementia, HTN, depression and gout complaints of weakness of right leg and right groin pain. Patient states he had L4-L5 surgery 3 weeks ago and things were getting better and his right leg weakness was improving and he was able to move his leg. He states he fell on and the weakness returned. He noticed on Thursday when he sneezed he lost control of his bladder and had extreme pain in his lower spine. He complains of right upper quadrant sore pain, 6/10, worse with palpation and right inguinal area pain worse with cough. He is awaiting pain medications. He states he uses CBD oil at home for pain. He use to follow with Dr. Posadas for his MS but has not seen him in 3 years. Denies any chest pain or sob. CBC/BMP: 08/05/17 1040 08/06/17 1654 Significant Findings Laboratory Tests Test 08/05/17 10:40 08/06/17 06:02 08/06/17 16:54 Platelet Count 143 TH/MM3 (150-450) Neutrophils (%) (Auto) 78.9 % (16.0-70.0) Monocytes (%) (Auto) 10.9 % (0.0-8.0) Lymphocytes # (Auto) 0.6 TH/MM3 (1.0-4.8) Potassium Level 3.3 MEQ/L (3.5-5.1) Estimat Glomerular Filtration Rate 61 ML/MIN (>89) 71 ML/MIN (>89) Carbon Dioxide Level 32.8 MEQ/L (21.0-32.0) Imaging Last Impressions Thoracic Spine MRI 08/06/17 Signed Impressions: Service Date/Time: August 10:22 - CONCLUSION: 1. No significant disc herniation, canal stenosis, or neural foraminal stenosis. 2. There is a nonspecific 8mm lesion within the T8 vertebral body. It may represent an atypical hemangioma but is nonspecific. No other concerning bone lesion is seen. Bhupinder Murdock MD Cervical Spine MRI 08/06/17 Signed Impressions: Service Date/Time: August 10:22 - CONCLUSION: 1. There is nonspecific, abnormal T2 signal within the central aspect of the cord extending from the mid body of C2 down to the inferior endplate of C4. This is best appreciated on the sagittal inversion recovery images. There is no evidence of contrast enhancement within this. Differential considerations would include a transverse myelitis or other demyelinative process. 2. Degenerative changes in the cervical spine as above. These are most significant at C5-6 and C6-7. Individual levels are dictated detail above. Terence Martinez MD Lumbar Spine MRI 08/05/17 Signed Impressions: Service Date/Time: Saturday, August 05, 2017 12:48 - CONCLUSION: 1. There has been prior right laminectomy at L3-L4 and L4-L5. At L3-L4, there is very mild canal narrowing secondary to material in the posterior lateral to lateral epidural space, likely representing scar tissue given the appearance and enhancement pattern. 2. At L4-L5 there is no canal stenosis but there is mild to moderate narrowing of the neural foramina bilaterally. Bhupinder Murdock MD Brain MRI 08/05/17 Signed Impressions: Service Date/Time: Saturday, August 05, 2017 21:17 - CONCLUSION: Unremarkable MRI of the brain. Oneal Phillips MD Abdomen/Pelvis CT 08/05/17 Signed Impressions: Service Date/Time: Saturday, August 05, 2017 19:54 - CONCLUSION: 1. Diverticulosis without diverticulitis. 2. Nonobstructing left-sided renal calculi. 3. No acute inflammatory process. 4. Normal appendix. Oneal Phillips MD PE at Discharge GENERAL: Alert, oriented 3, NAD. SKIN: Warm and dry. HEAD: Normocephalic. EYES: No scleral icterus. No injection or drainage. NECK: Supple, trachea midline. No JVD or lymphadenopathy. CARDIOVASCULAR: Regular rate and rhythm without murmurs, gallops, or rubs. RESPIRATORY: Breath sounds equal bilaterally. No accessory muscle use. GASTROINTESTINAL: Abdomen soft, non-tender, nondistended. MUSCULOSKELETAL: No cyanosis, or edema. BACK: Nontender without obvious deformity. No CVA tenderness. Pt update on day of discharge Patient is currently doing well. Denies any chest pain, shortness of breath, fever or chills. He is able to ambulate much better. Hospital Course Mr. Patterson is a pleasant 76-year-old male with a recent history of L3-L4 , L4-L5 decompressive laminectomy who fell at home and also experienced lower extremity weakness. He had a forceful sneeze which caused him to lose control of his lower extremity. He also complains of bowel and bladder difficulties. Neurosurgery evaluated patient again on 08/06/2017. L-spine MRI was done upon admission. Neurosurgery obtained C-spine and T-spine MRI which shows possibility of transverse myelitis. However after discussing with neurology, high-dose steroid where discontinued. Per neurology, patient has had similar findings on previous imaging studies. With physical therapy and supportive care , patient improved significantly and was able to ambulate well. Physical therapy recommended home with outpatient physical therapy. Patient will follow up with neurosurgery and neurology in the outpatient setting. Pt Condition on Discharge: Good Discharge Disposition: Discharge Home Discharge Time: <= 30 minutes Discharge Instructions DIET: Follow Instructions for: Heart Healthy Diet Activities you can perform: Regular-No Restrictions Follow up Referrals: Neurosurgery - 2 Weeks with Etienne oJnes MD PCP Follow-up - 1 Week Physical Therapy - 1 Week New Medications: Potassium Chloride ER (K-Tab) 10 Meq Tab 10 MEQ PO DAILY for Electrolyte Replacement, #30 TAB 0 Refills Continued Medications: Allopurinol (Allopurinol) 300 Mg Tab 300 MG PO DAILY for Gout, #30 TAB 0 Refills Atorvastatin (Atorvastatin) 40 Mg Tab 40 MG PO HS for Cholesterol Management, #30 TAB 0 Refills Bisoprolol-Hydrochlorothiazide (Ziac) 5-6.25 Mg Tab 1 TAB PO BID for Blood Pressure Management, #30 TAB 0 Refills Donepezil (Donepezil) 5 Mg Tab 5 MG PO HS for Dementia, #30 TAB 0 Refills Escitalopram (Escitalopram) 10 Mg Tab 10 MG PO DAILY, #30 TAB 0 Refills Folic Acid (Folic Acid) 0.4 Mg Tab 1 MG PO DAILY for Nutritional Supplement, TAB 0 Refills Furosemide (Furosemide) 20 Mg Tab 20 MG PO DAILY, #30 TAB 0 Refills Hydrocodone/Acetaminophen (Hydrocodone-Acetamin 10-325 mg) 10 Mg-325 Mg Tablet 1 TAB PO Q8HR PRN for PAIN SCALE 1 TO 10, #62 TAB 0 Refills [Cannibus Oil] () 10 DROP SL DIRECTED for Pain Quintin Ham DO August 07, 2017 1:42 pm
== END 2017-08-07 14:57 | disposition home or self-care (01) | DRG 99 ==
LOC: NEPC 10:13 → NEDA 14:24 → NEPFCDU 18:54 → OBSVTOIN 08-06 14:39
PROVIDERS: ADMIT Hospitalist; ATTEND Hospitalist
DX: G37.3 Acute transverse myelitis in demyelinating disease of central nervous system (principal); F03.90 Unspecified dementia, unspecified severity, without behavioral disturbance, psychotic disturbance, mood disturbance, and anxiety; R15.9 Full incontinence of feces; R20.0 Anesthesia of skin; G35 Multiple sclerosis; M54.5 Low back pain; W19.XXXA Unspecified fall, initial encounter; R29.6 Repeated falls; M19.90 Unspecified osteoarthritis, unspecified site; F41.9 Anxiety disorder, unspecified; E78.5 Hyperlipidemia, unspecified; F32.9 Major depressive disorder, single episode, unspecified; D35.2 Benign neoplasm of pituitary gland; Z87.442 Personal history of urinary calculi; Z96.652 Presence of left artificial knee joint; F12.90 Cannabis use, unspecified, uncomplicated; R10.31 Right lower quadrant pain; I10 Essential (primary) hypertension; M10.9 Gout, unspecified; Z82.49 Family history of ischemic heart disease and other diseases of the circulatory system; Z98.890 Other specified postprocedural states; E87.6 Hypokalemia; Z79.899 Other long term (current) drug therapy; W18.30XA Fall on same level, unspecified, initial encounter; Z91.81 History of falling; Y93.9 Activity, unspecified; Y92.009 Unspecified place in unspecified non-institutional (private) residence as the place of occurrence of the external cause; R32 Unspecified urinary incontinence
CPT/HCPCS: 70553; 72156; 72157; 72158; 74177; 80048; 82948; 83735; 84132; 85025; A9579; G8987-GP; G8988-GP; J1650; J2270; Q9963; Q9967